=== PATIENT | female | born 2000 | race Caucasian/White ===

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

== ENCOUNTER 2022-03-04 23:17 | Emergency (ER) | payer MEDICAID ==
[~2022-03-04] VITALS: Ht 152.4 cm; Wt 75.0 kg
[~2022-03-04 23:17] MED LIST changes: -ADV50250 IH; +ALBU18HF2 PO; -ALBU8HFA PO; +AMOX-117 PO; +FLUT1BLS9 PO; +NICO-630 TD
[2022-03-04 23:45] VITALS: BP 108/62
[2022-03-04] MEDS ORDERED: albuterol 2.5 MG/3 ML nebule NEB STA (23:47)
[2022-03-05] MEDS ORDERED: ALBU6.7H14 INH (00:34)
[2022-03-05] MEDS ORDERED: PRED20TA PO (00:34)
[2022-03-05] MEDS ORDERED: albuterol 2.5 MG/3 ML nebule NEB ONE (00:35)
[2022-03-05] MEDS ORDERED: predniSONE 20 mg tablet PO ONE (00:35)
== END 2022-03-05 01:15 | disposition home or self-care (01) ==
LOC: ER 23:17
DX: J45.901 Unspecified asthma with (acute) exacerbation (principal); F17.200 Nicotine dependence, unspecified, uncomplicated; F15.10 Other stimulant abuse, uncomplicated; F11.10 Opioid abuse, uncomplicated; Z79.899 Other long term (current) drug therapy; Z79.1 Long term (current) use of non-steroidal anti-inflammatories (NSAID); Z79.2 Long term (current) use of antibiotics
CPT/HCPCS: 94640; 99284; J7512; 94760